=== PATIENT | female | born 1980 | race Caucasian/White ===

== ENCOUNTER 2016-10-23 13:57 | Emergency (ER) | payer MEDICAID, SELFPAY ==
--- NOTE | 2016-10-23 15:02 | EDM.PDOC ---
ED HPI GENERAL MEDICAL PROBLEM - General Chief Complaint: Drug or Alcohol Abuse Stated Complaint: DETOX Time Seen by Provider: 10/23/16 14:42 Source of Information: Reports: Patient History Limitations: Reports: No limitations - History of Present Illness INITIAL COMMENTS - FREE TEXT/NARRATIVE: Patient presents for a refill of her Suboxone. Patient reports that she is on a 8.5 mg daily. She has been on this dose for 2 years. She is currently managed by provider in [place]. Patient reports that she travels between [place] and [place] to see her boyfriend that lives here. She reports her last refill of suboxone was about one month ago. She took her last dose of Suboxone today. No withdrawal symptoms currently. 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: Other (see below) Other OB/BYN History: 2 c-sections - Past Surgical History GI Surgical History: Reports: Hernia, abdominal, Hernia, inguinal Social & Family History - Tobacco Use Smoking Status *Q: Current Every Day Smoker Years of Tobacco use: 10 Packs/Tins Daily: 0.5 - Caffeine Use Caffeine Use: Reports: Tea - Recreational Drug Use Recreational Drug Use: Yes Drug Use in Last 12 Months: No Recreational Drug Type: Reports: Heroin Recreational Drug Use Frequency: Not Used In Over 6 Months Recreational Drug Last Use: 3 years ED ROS GENERAL - Review of Systems Review Of Systems: ROS reveals no pertinent complaints other than HPI. ED EXAM, GENERAL - Physical Exam Exam: See Below Exam Limited By: No limitations General Appearance: alert, WD/WN, no apparent distress Respiratory/Chest: no respiratory distress Neurological: alert, oriented, normal cognition Psychiatric: normal affect, normal mood Skin Exam: Warm, Dry Course - Vital Signs Last Recorded V/S: Last Vital Signs Temp 36.3 C 10/23/16 14:19 Pulse 80 10/23/16 14:19 Resp 20 10/23/16 14:19 BP 110/73 10/23/16 14:19 Pulse Ox 97 10/23/16 14:19 - Re-Assessments/Exams Free Text/Narrative Re-Assessment/Exam: 10/23/16 15:30 I will give the patient #12 percocet 5-325. She was informed that she will not receive further refills of percocet and she must contact her provider on Tuesday for a refill of suboxone. She expresses understanding. Departure - Departure Time of Disposition: 15:30 Disposition: Home, Self-Care 01 Condition: good Clinical Impression: Drug dependence Prescriptions: Acetaminophen/oxyCODONE [Percocet 325-5 MG] 1 tab PO Q6H #12 tablet Instructions: Chemical Dependency Referrals: PCP,None [Primary Care Provider] - Additional Instructions: Percocet 1 to 2 tabs PO every 4-6 hours to prevent withdrawal symptoms. No driving or operating machinery within 12 hours of taking percocet. Contact your suboxone management team Tuesday for further refills. Please return to the ER should your symptoms change or worsen.
== END 2016-10-23 15:44 | disposition home or self-care (01) ==
LOC: JD.ED 13:57
CPT/HCPCS: 99283; 99284